=== PATIENT | female | born 1975 | race African-American/Black ===

== ENCOUNTER 2022-07-15 10:56 | Inpatient (IN) | payer OTHER ==
[2022-07-15 11:25] VITALS: BMI 21.3
[2022-07-15] MEDS ORDERED: BISMUTH SUBSALICYLATE 262 MG/15 ML BTL PO PRN (11:45)
[2022-07-15] MEDS ORDERED: METHOCARBAMOL 500 MG TABLET PO PRN (11:45)
[2022-07-15] MEDS ORDERED: NICOTINE 10 MG CARTRIDGE (INHALER) IH PRN (11:45)
[2022-07-15] MEDS ORDERED: DICYCLOMINE HCL 10 MG CAPSULE PO PRN (11:45)
[2022-07-15] MEDS ORDERED: NICOTINE POLACRILEX 2 MG GUM BUC PRN (11:45)
[2022-07-15] MEDS ORDERED: BENZOCAINE/MENTHOL (CHLORASEPTIC ) LOZENGE MM PRN (11:45)
[2022-07-15] MEDS ORDERED: LOPERAMIDE HCL 2 MG CAPSULE PO PRN (11:45)
[2022-07-15] MEDS ORDERED: IBUPROFEN 400 MG TABLET (FP) PO PRN (11:45)
[2022-07-15] MEDS ORDERED: ONDANSETRON *ODT* 4 MG TABLET SL PRN (11:45)
[2022-07-15] MEDS ORDERED: IBUPROFEN 600 MG TABLET (FP) PO PRN (11:45)
[2022-07-15] MEDS ORDERED: MAG HYDROX/AL HYDROX/SIMETH 30 ML UNIT-DOSE CUP PO PRN (11:45)
[2022-07-15] MEDS ORDERED: MAGNESIUM HYDROX 2400MG/30ML ORAL SUSPENSION 30 ML CUP PO PRN (11:45)
[2022-07-15] MEDS ORDERED: ACETAMINOPHEN 325 MG TABLET (FP) PO PRN ×2 (11:45)
[2022-07-15] MEDS ORDERED: POLYETHYLENE GLYCOL (HEALTHYLAX) 3350 17 GM PACKET PO PRN (11:45)
[2022-07-15] MEDS ORDERED: NICOTINE 7 MG/24 HOURS TOPICAL PATCH TD PRN (11:45)
[2022-07-15] MEDS ORDERED: LORazepam 1 MG TABLET PO PRN (11:45)
[2022-07-15] MEDS ORDERED: hydrOXYzine PAMOATE 25 MG CAPSULE (FP) PO PRN (11:45)
[2022-07-15] MEDS ORDERED: LORazepam 1 MG TABLET ONE (13:10)
[2022-07-15 15:24] LABS: HEMATOCRIT 20.7 % (32.4-45.2)
[2022-07-15 15:27] LABS: MCH 23.6 pg (25.7-33.7); MEAN CELL VOLUME 73.6 fl (80-96); MEAN PLT VOLUME 9.8 fl (7.5-11.1); PLATELET COUNT 161 10^3/uL (134-434); RBC 2.81 M/mm3 (3.60-5.2); WHITE BLOOD COUNT 7.2 K/mm3 (4.0-10.0)
[2022-07-15 15:37] LABS: HEMOGLOBIN 6.6 GM/dL (10.7-15.3)
[2022-07-15 15:50] LABS: CALCIUM 8.4 mg/dL (8.5-10.1)
[2022-07-15 15:51] LABS: ALBUMIN 3.5 g/dl (3.4-5.0); BLOOD UREA NITROGEN 45.3 mg/dL (7-18)
[2022-07-15 15:54] LABS: CREATININE 4.6 mg/dL (0.55-1.3)
[2022-07-15 15:55] LABS: TOT PROT 7.5 g/dl (6.4-8.2)
[2022-07-15 15:57] LABS: BILIRUBIN,TOTAL 0.2 mg/dL (0.2-1)
[2022-07-15] MEDS: AMOX TR/POT CLAV 875MG/125MG TABLETS (FP) PO SCH (17:23)
[2022-07-15] MEDS: LORazepam 2 MG TABLET PO SCH ×2 (17:23→22:12)
[2022-07-15] MEDS ORDERED: MELATONIN 5 MG TABLETS PO SCH (22:00)
[2022-07-15] MEDS: THIAMINE HCL 100 MG TABLET (FP) PO SCH (22:11)
[2022-07-15] MEDS: FAMOTIDINE 20 MG TABLET PO SCH (22:12)
[2022-07-16] MEDS: LORazepam 2 MG TABLET PO SCH ×4 (05:56→22:08)
[2022-07-16] MEDS: AMOX TR/POT CLAV 875MG/125MG TABLETS (FP) PO SCH ×2 (07:00→17:32)
[2022-07-16] MEDS ORDERED: hydrOXYzine PAMOATE 25 MG CAPSULE (FP) PO PRN (08:48)
[2022-07-16] MEDS: ISOSORBIDE MONONITRATE 30 MG TAB.SR.24H (FP) PO SCH (10:46)
[2022-07-16] MEDS: NIFEdipine E.R 60 MG TABLET PO SCH (10:46)
[2022-07-16] MEDS: FAMOTIDINE 20 MG TABLET PO SCH ×2 (10:46→22:08)
[2022-07-16] MEDS: PRENATAL VITAMINS W/ FOLIC ACID TABLET (FP) PO SCH (10:49)
[2022-07-16] MEDS ORDERED: NIFEdipine E.R 60 MG TABLET PO ONE ×2 (13:30→14:30)
[2022-07-16] MEDS: THIAMINE HCL 100 MG TABLET (FP) PO SCH (22:08)
[2022-07-16] MEDS: traZODone HCL 50 MG TABLET (FP) PO SCH (22:08)
[2022-07-17] MEDS: LORazepam 1 MG TABLET PO SCH ×4 (05:23→23:52)
[2022-07-17] MEDS: AMOX TR/POT CLAV 875MG/125MG TABLETS (FP) PO SCH ×2 (07:15→16:38)
[2022-07-17 09:48] VITALS: BP 176/100; PULSE 83; RESP 18; TEMP 98.8
[2022-07-17] MEDS: ISOSORBIDE MONONITRATE 30 MG TAB.SR.24H (FP) PO SCH (10:28)
[2022-07-17] MEDS: FAMOTIDINE 20 MG TABLET PO SCH ×2 (10:28→22:32)
[2022-07-17] MEDS: NIFEdipine E.R 60 MG TABLET PO SCH (10:28)
[2022-07-17] MEDS: PRENATAL VITAMINS W/ FOLIC ACID TABLET (FP) PO SCH (10:28)
[2022-07-17] MEDS: traZODone HCL 50 MG TABLET (FP) PO SCH (22:31)
[2022-07-17] MEDS: THIAMINE HCL 100 MG TABLET (FP) PO SCH (22:32)
[2022-07-18] MEDS ORDERED: LORazepam 0.5 MG TABLET PO PRN
[2022-07-18] MEDS ORDERED: LORazepam 0.5 MG TABLET PO SCH (05:00)
[2022-07-19] MEDS ORDERED: LORazepam 0.5 MG TABLET PO ONE (05:00)
== END 2022-07-17 23:51 | disposition short-term general hospital (02) | DRG 774 ==
LOC: YASAS 10:56 → Y3N 12:07
PROVIDERS: ADMIT Allergy & Immunology; ATTEND Surgery
PROC: HZ2ZZZZ Detoxification Services for Substance Abuse Treatment (ICD-10-PCS; principal; 2022-07-15)
DX: F10.230 Alcohol dependence with withdrawal, uncomplicated (principal); F14.20 Cocaine dependence, uncomplicated; F17.213 Nicotine dependence, cigarettes, with withdrawal; F19.282 Other psychoactive substance dependence with psychoactive substance-induced sleep disorder; F41.8 Other specified anxiety disorders; D64.9 Anemia, unspecified; I10 Essential (primary) hypertension; N28.9 Disorder of kidney and ureter, unspecified
CPT/HCPCS: 36415; 80053; 85027; 86593; 86780; C9803-CS; U0003; U0005

== ENCOUNTER 2022-07-17 12:49 | Observation (INO) | payer OTHER ==
[2022-07-17 13:45] LABS: HEMATOCRIT 19.5 % (32.4-45.2); MCH 22.8 pg (25.7-33.7); MCHC 31.7 g/dl (32.0-36.0); MEAN CELL VOLUME 71.8 fl (80-96); MEAN PLT VOLUME 8.9 fl (7.5-11.1); PLATELET COUNT 155 10^3/uL (134-434); RBC 2.71 M/mm3 (3.60-5.2); RDW 16.9 % (11.6-15.6); WHITE BLOOD COUNT 3.5 K/mm3 (4.0-10.0)
[2022-07-17 13:49] LABS: HEMOGLOBIN 6.2 GM/dL (10.7-15.3)
[2022-07-17 13:50] LABS: INR 0.99 (0.83-1.09); PROTHROMBIN TIME (PATIENT) 11.5 SEC (9.7-13.0)
[2022-07-17 13:52] LABS: ACTIVATED PTT 31.3 SECONDS (25.2-36.5)
[2022-07-17 14:04] LABS: CALCIUM 8.8 mg/dL (8.5-10.1)
[2022-07-17 14:05] LABS: BLOOD UREA NITROGEN 47.5 mg/dL (7-18); MAGNESIUM 1.3 mg/dL (1.8-2.4)
[2022-07-17 14:07] LABS: PHOSPHOROUS 2.7 mg/dL (2.5-4.9)
[2022-07-17 14:08] LABS: CREATININE 3.5 mg/dL (0.55-1.3)
[2022-07-17 14:09] LABS: BILIRUBIN,TOTAL 0.2 mg/dL (0.2-1); TOT PROT 6.7 g/dl (6.4-8.2)
[2022-07-17] MEDS ORDERED: MAGNESIUM SULF 50% (8.12 MEQ/2 ML-1 GM VIAL) IVPB ONE (14:11)
[2022-07-17] MEDS ORDERED: MAGNESIUM SULFATE IN WATER 2 GM/50 ML IVPB IVPB ONE (14:22)
[2022-07-17] MEDS ORDERED: LORazepam 1 MG TABLET ONE (17:34)
[2022-07-17] MEDS: LORazepam 1 MG TABLET PO PRN (17:37)
[2022-07-17 17:40] LABS: RETICULOCYTES 1.15 % (0.5-1.5)
[2022-07-17 20:18] LABS: CALCIUM 8.7 mg/dL (8.5-10.1)
[2022-07-17 20:19] LABS: BLOOD UREA NITROGEN 41.9 mg/dL (7-18)
[2022-07-17 20:22] LABS: CREATININE 3.5 mg/dL (0.55-1.3)
[2022-07-17 20:23] LABS: BILIRUBIN,TOTAL 0.3 mg/dL (0.2-1); TOT PROT 6.6 g/dl (6.4-8.2)
[2022-07-17 21:07] VITALS: BMI 22.8
[2022-07-17] MEDS: ATORVASTATIN CA 20 MG TABLET (FP) PO SCH (21:24)
[2022-07-17] MEDS: traZODone HCL 50 MG TABLET (FP) PO SCH (21:24)
[2022-07-17] MEDS: FAMOTIDINE 10 MG TABLET PO SCH (21:24)
[2022-07-18] MEDS: LORazepam 1 MG TABLET PO PRN ×4 (03:00→21:10)
[2022-07-18 09:50] LABS: BASO % 1.7 % (0-2.0); HEMOGLOBIN 7.8 GM/dL (10.7-15.3); LYMPH % 37.3 % (8-40); MCH 23.9 pg (25.7-33.7); MCHC 32.5 g/dl (32.0-36.0); MEAN CELL VOLUME 73.6 fl (80-96); MEAN PLT VOLUME 9.8 fl (7.5-11.1); MONO % 9.2 % (3.8-10.2); NEUT % 50.8 % (42.8-82.8); PLATELET COUNT 167 10^3/uL (134-434); RBC 3.26 M/mm3 (3.60-5.2); RDW 16.7 % (11.6-15.6)
[2022-07-18 10:01] LABS: ALBUMIN 3.1 g/dl (3.4-5.0); BLOOD UREA NITROGEN 49.2 mg/dL (7-18); CALCIUM 8.7 mg/dL (8.5-10.1)
[2022-07-18 10:04] LABS: CREATININE 3.8 mg/dL (0.55-1.3)
[2022-07-18 10:06] LABS: BILIRUBIN,TOTAL 0.4 mg/dL (0.2-1)
[2022-07-18] MEDS: THIAMINE HCL 100 MG TABLET (FP) PO SCH (10:12)
[2022-07-18] MEDS: FAMOTIDINE 10 MG TABLET PO SCH (10:12)
[2022-07-18] MEDS: NIFEdipine E.R 60 MG TABLET PO SCH (10:12)
[2022-07-18] MEDS: ISOSORBIDE MONONITRATE 30 MG TAB.SR.24H (FP) PO SCH (10:12)
[2022-07-18] MEDS: metroNIDAZOLE 250 MG TABLET PO SCH (21:09)
[2022-07-18] MEDS: traZODone HCL 50 MG TABLET (FP) PO SCH (21:09)
[2022-07-18] MEDS: ATORVASTATIN CA 20 MG TABLET (FP) PO SCH (21:10)
[2022-07-19] MEDS: LORazepam 1 MG TABLET PO PRN ×3 (06:08→14:17)
[2022-07-19] MEDS: metroNIDAZOLE 250 MG TABLET PO SCH ×3 (06:09→22:07)
[2022-07-19] MEDS: THIAMINE HCL 100 MG TABLET (FP) PO SCH (10:17)
[2022-07-19] MEDS: ISOSORBIDE MONONITRATE 30 MG TAB.SR.24H (FP) PO SCH (10:17)
[2022-07-19] MEDS: FAMOTIDINE 10 MG TABLET PO SCH (10:17)
[2022-07-19] MEDS: NIFEdipine E.R 60 MG TABLET PO SCH (10:18)
[2022-07-19 12:57] LABS: HEMATOCRIT 24.3 % (32.4-45.2); HEMOGLOBIN 7.7 GM/dL (10.7-15.3); LYMPH % 31.6 % (8-40); MCH 22.9 pg (25.7-33.7); MCHC 31.6 g/dl (32.0-36.0); MEAN CELL VOLUME 72.7 fl (80-96); MEAN PLT VOLUME 9.7 fl (7.5-11.1); MONO % 7.7 % (3.8-10.2); NEUT % 58.7 % (42.8-82.8); PLATELET COUNT 173 10^3/uL (134-434); RBC 3.34 M/mm3 (3.60-5.2); RDW 17.3 % (11.6-15.6); WHITE BLOOD COUNT 4.6 K/mm3 (4.0-10.0)
[2022-07-19 13:39] LABS: BLOOD UREA NITROGEN 52.6 mg/dL (7-18)
[2022-07-19 13:40] LABS: CALCIUM 8.7 mg/dL (8.5-10.1)
[2022-07-19 13:42] LABS: CREATININE 3.7 mg/dL (0.55-1.3)
[2022-07-19] MEDS ORDERED: LORazepam 1 MG TABLET PO PRN ×2 (16:03→16:32)
[2022-07-19] MEDS: SODIUM BICARBONATE 650 MG TABLET PO SCH (22:07)
[2022-07-19] MEDS: ATORVASTATIN CA 20 MG TABLET (FP) PO SCH (22:07)
[2022-07-19] MEDS: traZODone HCL 50 MG TABLET (FP) PO SCH (22:07)
[2022-07-19] MEDS: HEPARIN NA (PORCINE) 5,000 UNITS/ML 1ML VIAL SQ SCH (22:08)
[2022-07-19 23:02] VITALS: RESP 18
[2022-07-20] MEDS: metroNIDAZOLE 250 MG TABLET PO SCH ×2 (05:35→13:34)
[2022-07-20] MEDS: SODIUM BICARBONATE 650 MG TABLET PO SCH ×2 (05:35→13:34)
[2022-07-20] MEDS: HEPARIN NA (PORCINE) 5,000 UNITS/ML 1ML VIAL SQ SCH ×2 (05:35→13:34)
[2022-07-20] MEDS ORDERED: LORazepam 1 MG TABLET PO PRN (08:15)
[2022-07-20] MEDS: THIAMINE HCL 100 MG TABLET (FP) PO SCH (09:56)
[2022-07-20] MEDS: ISOSORBIDE MONONITRATE 30 MG TAB.SR.24H (FP) PO SCH (09:56)
[2022-07-20] MEDS: NIFEdipine E.R 60 MG TABLET PO SCH (09:56)
[2022-07-20] MEDS: FAMOTIDINE 10 MG TABLET PO SCH (09:57)
[2022-07-20 10:16] LABS: HEMOGLOBIN 7.4 GM/dL (10.7-15.3); MCH 23.3 pg (25.7-33.7); MCHC 32.1 g/dl (32.0-36.0); MEAN CELL VOLUME 72.7 fl (80-96); MEAN PLT VOLUME 9.5 fl (7.5-11.1); PLATELET COUNT 167 10^3/uL (134-434); RBC 3.17 M/mm3 (3.60-5.2); RDW 17.2 % (11.6-15.6); WHITE BLOOD COUNT 3.8 K/mm3 (4.0-10.0)
[2022-07-20 10:34] LABS: CALCIUM 8.7 mg/dL (8.5-10.1); MAGNESIUM 1.6 mg/dL (1.8-2.4)
[2022-07-20 10:35] LABS: BILIRUBIN,TOTAL 0.3 mg/dL (0.2-1); TOT PROT 6.6 g/dl (6.4-8.2)
[2022-07-20 10:36] LABS: CREATININE 3.9 mg/dL (0.55-1.3)
[2022-07-20 10:37] LABS: PHOSPHOROUS 3.2 mg/dL (2.5-4.9)
[2022-07-20] MEDS ORDERED: MAGNESIUM OXIDE 400 MG TABLET (FP) PO ONE (14:38)
[2022-07-20 15:25] LABS: ANISOCYTOSIS 2+; MACROCYTOSIS 0; OVALOCYTE 2+; TEAR DROP CELLS 2+
[2022-07-20 15:36] LABS: RETICULOCYTES 0.94 % (0.5-1.5)
[2022-07-20 16:29] VITALS: BP 118/77; PULSE 72; TEMP 98.3
== END 2022-07-20 16:41 | disposition home or self-care (01) ==
LOC: JER 12:49 → UNDOADMOB 14:12 → JERBED 14:12 → INTOOBSV 16:46 → OBSVTOIN 16:46 → JERBED 20:02 → J6S 20:02 → JERBED 07-19 13:51
PROVIDERS: ADMIT Internal Medicine; ATTEND Internal Medicine
PROC: 3E023GC Introduction of Other Therapeutic Substance into Muscle, Percutaneous Approach (ICD-10-PCS; principal; 2022-07-19)
PROC: 3E033GC Introduction of Other Therapeutic Substance into Peripheral Vein, Percutaneous Approach (ICD-10-PCS; 2022-07-19)
PROC: 30233N1 Transfusion of Nonautologous Red Blood Cells into Peripheral Vein, Percutaneous Approach (ICD-10-PCS; 2022-07-19)
DX: D56.1 Beta thalassemia (principal); F14.20 Cocaine dependence, uncomplicated; I13.10 Hypertensive heart and chronic kidney disease without heart failure, with stage 1 through stage 4 chronic kidney disease, or unspecified chronic kidney disease; F10.90 Alcohol use, unspecified, uncomplicated; D64.9 Anemia, unspecified; F32.9 Major depressive disorder, single episode, unspecified; N18.30 Chronic kidney disease, stage 3 unspecified; F17.210 Nicotine dependence, cigarettes, uncomplicated; N28.9 Disorder of kidney and ureter, unspecified; Z88.8 Allergy status to other drugs, medicaments and biological substances
CPT/HCPCS: 0241U-QW; 36415; 36430; 71046-TC-FY; 80048; 80053; 82310; 82607; 82728; 82746; 83036; 83540; 83550; 83615; 83735; 83970; 84100; 84443; 85025; 85027; 85045; 85610; 85730; 86850; 86900; 86901; 86922; 93005; 93010; 93306-TC; 96372; 96374; 99285-25; G0378; J1644; P9058